=== PATIENT | male | born 1995 | race Caucasian/White ===

== ENCOUNTER → 2019-03-28 | Outpatient (CLI) | payer BC ==
[2019-03-28 09:12] LABS: BASO % 0.5 % (0.0-1.0); EOS # 0.1 10^3/uL (0.0-0.5); EOS % 1.4 % (0.0-3.0); LYMPH # 1.8 10^3/uL (1.5-5.0); LYMPH % 31.8 % (24.0-44.0); MEAN CORPUSCULAR HGB CONC 34.6 g/dl (32.0-36.5); MEAN CORPUSCULAR VOLUME 89.7 fl (80.0-96.0); MONO # 0.4 10^3/uL (0.0-0.8); MONO % 6.2 % (0.0-5.0); NEUTROPHILS # 3.4 10^3/uL (1.5-8.5); NEUTROPHILS % 59.2 % (36.0-66.0); PLATELET COUNT, AUTOMATED 174 10^3/uL (150-450); WHITE BLOOD COUNT 5.7 10^3/uL (4.0-10.0)
[2019-03-28 09:13] LABS: HEMATOCRIT 52.9 % (42.0-52.0); HEMOGLOBIN 18.3 g/dl (13.5-17.5)
[2019-03-28 09:45] LABS: BLOOD UREA NITROGEN 11 MG/DL (7-18); CALCIUM LEVEL 9.9 MG/DL (8.5-10.1); CARBON DIOXIDE LEVEL 31 MEQ/L (21-32); CHLORIDE LEVEL 106 MEQ/L (98-107); GLOMERULAR FILTRATION RATE > 60.0 (>60); GLUCOSE, FASTING 92 MG/DL (70-100); POTASSIUM SERUM 4.6 MEQ/L (3.5-5.1); SODIUM LEVEL 141 MEQ/L (136-145)
== END ==
LOC: M LAB 08:36
PROVIDERS: ATTEND Physician Assistant
DX: R53.83 Other fatigue (principal)

== ENCOUNTER → 2019-04-08 | Outpatient (CLI) | payer BC ==
[~2019-04-08] MED LIST: CARA1TAB6 PO; DICY20TA11 PO; ESOM40CA35; FLUTISP; ONDA4TAB6; zyrtec PO
[2019-04-08 10:40] LABS: BASO % 0.3 % (0.0-1.0); EOS % 0.3 % (0.0-3.0); HEMATOCRIT 49.1 % (42.0-52.0); HEMOGLOBIN 16.8 g/dl (13.5-17.5); LYMPH # 1.1 10^3/uL (1.5-5.0); LYMPH % 11.9 % (24.0-44.0); MEAN CORPUSCULAR HEMOGLOBIN 30.3 pg (27.0-33.0); MEAN CORPUSCULAR HGB CONC 34.2 g/dl (32.0-36.5); MEAN CORPUSCULAR VOLUME 88.6 fl (80.0-96.0); MONO # 0.8 10^3/uL (0.0-0.8); MONO % 8.8 % (0.0-5.0); NEUTROPHILS # 7.2 10^3/uL (1.5-8.5); NEUTROPHILS % 78.4 % (36.0-66.0); PLATELET COUNT, AUTOMATED 167 10^3/uL (150-450); RED BLOOD COUNT 5.54 10^6/uL (4.30-6.10); WHITE BLOOD COUNT 9.2 10^3/uL (4.0-10.0)
[2019-04-08 11:00] LABS: ALBUMIN 4.1 GM/DL (3.2-5.2); ALT/SGPT 31 U/L (12-78); AMYLASE 40 U/L (25-115); BILIRUBIN,TOTAL 4.8 MG/DL (0.2-1.0); BLOOD UREA NITROGEN 12 MG/DL (7-18); CALCIUM LEVEL 9.3 MG/DL (8.5-10.1); CARBON DIOXIDE LEVEL 29 MEQ/L (21-32); CHLORIDE LEVEL 106 MEQ/L (98-107); GLOMERULAR FILTRATION RATE > 60.0 (>60); GLUCOSE, FASTING 85 MG/DL (70-100); POTASSIUM SERUM 4.3 MEQ/L (3.5-5.1); SODIUM LEVEL 138 MEQ/L (136-145); TOTAL PROTEIN 6.7 GM/DL (6.4-8.2)
== END ==
LOC: M LAB 09:30
PROVIDERS: ATTEND Family Medicine
DX: R11.0 Nausea (principal)

== ENCOUNTER 2019-04-10 12:10 | Emergency (ER) | payer BC ==
[~2019-04-10] VITALS: Ht 180.3 cm; Wt 84.5 kg
[2019-04-10] MEDS ORDERED: ESOM40CA35 (12:20)
[2019-04-10] MEDS ORDERED: FLUTISP (12:20)
[2019-04-10] MEDS ORDERED: ONDA4TAB6 (12:20)
[2019-04-10] MEDS ORDERED: zyrtec PO (12:20)
[2019-04-10 12:54] LABS: BASO % 0.6 % (0.0-1.0); EOS # 0.1 10^3/uL (0.0-0.5); EOS % 1.1 % (0.0-3.0); HEMATOCRIT 48.9 % (42.0-52.0); HEMOGLOBIN 16.8 g/dl (13.5-17.5); LYMPH # 1.3 10^3/uL (1.5-5.0); LYMPH % 17.9 % (24.0-44.0); MEAN CORPUSCULAR HEMOGLOBIN 30.7 pg (27.0-33.0); MEAN CORPUSCULAR HGB CONC 34.4 g/dl (32.0-36.5); MEAN CORPUSCULAR VOLUME 89.4 fl (80.0-96.0); MONO # 0.8 10^3/uL (0.0-0.8); MONO % 11.8 % (0.0-5.0); NEUTROPHILS # 4.8 10^3/uL (1.5-8.5); NEUTROPHILS % 68.2 % (36.0-66.0); PLATELET COUNT, AUTOMATED 180 10^3/uL (150-450); RED BLOOD COUNT 5.47 10^6/uL (4.30-6.10); WHITE BLOOD COUNT 7.1 10^3/uL (4.0-10.0)
[2019-04-10] MEDS ORDERED: ONDANSETRON 4MG/2ML VIAL (J2405) IV ONE (13:15)
[2019-04-10] MEDS ORDERED: NS 1,000 ML IV ONE (13:15)
[2019-04-10 13:21] LABS: ALBUMIN 3.9 GM/DL (3.2-5.2); ALT/SGPT 30 U/L (12-78); BILIRUBIN,TOTAL 3.3 MG/DL (0.2-1.0); BLOOD UREA NITROGEN 8 MG/DL (7-18); CALCIUM LEVEL 9.2 MG/DL (8.5-10.1); CARBON DIOXIDE LEVEL 29 MEQ/L (21-32); CHLORIDE LEVEL 105 MEQ/L (98-107); CREATININE FOR GFR 1.11 MG/DL (0.70-1.30); GLOMERULAR FILTRATION RATE > 60.0 (>60); GLUCOSE, FASTING 93 MG/DL (70-100); LIPASE 66 U/L (73-393); POTASSIUM SERUM 5.2 MEQ/L (3.5-5.1); SODIUM LEVEL 139 MEQ/L (136-145); TOTAL PROTEIN 6.9 GM/DL (6.4-8.2)
--- NOTE | 2019-04-10 13:38 | REP ---
Clinical: Abdominal pain with nausea and vomiting. Technique: Axial noncontrast images from the lung bases to the pubic symphysis with coronal and sagittal re-formations. Findings: Lung bases are clear. Liver, spleen, pancreas, gallbladder, bilateral adrenal glands and kidneys are normal. The enteric system is without obstruction or acute inflammatory process. Normal terminal ileum and appendix identified in the right lower quadrant. Sigmoid diverticula noted without acute diverticulitis. Mildly prominent lymph nodes in the right lower quadrant/pericecal region may reflect mesenteric adenitis should be correlated clinically. Pelvis demonstrates normal bladder and age appropriate prostate/seminal vesicles. No ascites. No free air. No retroperitoneal adenopathy. Abdominal aorta without aneurysm. Musculoskeletal structures are intact. Impression: 1. Findings suggest mesenteric adenitis. 2. Nonacute findings as above. Electronically Signed by Mio Orozco MD 04/10/2019 01:31 P
[2019-04-10] MEDS ORDERED: DICY20TA11 PO (14:27)
[2019-04-10] MEDS ORDERED: CARA1TAB6 PO (14:27)
[2019-04-10 14:32] VITALS: BP 136/83
== END 2019-04-10 14:39 | disposition home or self-care (01) ==
LOC: M ED 12:10
DX: I88.0 Nonspecific mesenteric lymphadenitis (principal); R11.2 Nausea with vomiting, unspecified; K21.9 Gastro-esophageal reflux disease without esophagitis; Z79.899 Other long term (current) drug therapy; Z88.6 Allergy status to analgesic agent; Z88.8 Allergy status to other drugs, medicaments and biological substances
CPT/HCPCS: 74176; 80053; 83690; 85025; 96374; 99284; J2405

== ENCOUNTER 2019-05-28 07:24 | Day surgery (SDC) | payer BC ==
[~2019-05-28] VITALS: Ht 177.8 cm; Wt 84.4 kg
[~2019-05-28 07:24] MED LIST changes: -ESOM40CA35; +ESOM40CA35 PO; +FLON1SPR NARES; +NS 1,000 ML IV ONE; -ONDA4TAB6; +ONDA4TAB6 PO; +ZYRTTAB8 PO
[2019-05-28 08:45] VITALS: BP 122/75
--- NOTE | 2019-05-28 09:07 | ROOR ---
Patient Name: Kiran Pickard Procedure Date: 05/28/2019 8:07 AM Date of : 1995 Age: 24 Room: [facility] Gender: Male Note Status: Finalized Procedure: Upper Endoscopy + Biopsies Indications: Nausea with vomiting, Weight loss Providers: Bo Nunez MD Referring MD: Elena Correa MD Requesting Provider: Medicines: Monitored Anesthesia Care Complications: No immediate complications. Procedure: Pre-Anesthesia Assessment: - The heart rate, respiratory rate, oxygen saturations, blood pressure, adequacy of pulmonary ventilation, and response to care were monitored throughout the procedure. The Endoscope was introduced through the mouth, and advanced to the second part of duodenum. The upper GI endoscopy was accomplished without difficulty. The patient tolerated the procedure well. Findings: The Z-line was regular and was found 40 cm from the incisors. Multiple biopsies were obtained with cold forceps for evaluation to rule out Key's Esophagus randomly at the gastroesophageal junction. A small hiatal hernia was present. Localized mildly erythematous mucosa without bleeding was found on the anterior wall of the stomach. Biopsies were taken with a cold forceps for histology. Biopsies were taken with a cold forceps in the gastric antrum for Helicobacter pylori testing. The exam of the duodenum was otherwise normal. Impression: - Z-line regular, 40 cm from the incisors. - Small hiatal hernia. - Erythematous mucosa in the anterior wall of the stomach. Biopsied. - Multiple biopsies were obtained at the gastroesophageal junction. - Biopsies were taken with a cold forceps for Helicobacter pylori testing. - The examination was otherwise normal. Recommendation: - Patient has a contact number available for emergencies. The signs and symptoms of potential delayed complications were discussed with the patient. Return to normal activities tomorrow. Written discharge instructions were provided to the patient. - Resume previous diet. - Follow an antireflux regimen. - Continue present medications. - Await pathology results. - Telephone GI clinic for pathology results in 1 week. - Return to referring physician. - The findings and recommendations were discussed with the patient's family. Bo Nunez MD Bo Nunez MD 05/28/2019 9:06:22 AM Electronically signed by Bo Nunez MD Number of Addenda: 0 Note Initiated On: 05/28/2019 8:07 AM Estimated Blood Loss: Estimated blood loss: none.
== END 2019-05-28 09:13 | disposition home or self-care (01) ==
LOC: M OPP 07:24
PROVIDERS: ATTEND Internal Medicine Gastroenterology
DX: K44.9 Diaphragmatic hernia without obstruction or gangrene (principal); K31.89 Other diseases of stomach and duodenum; K21.9 Gastro-esophageal reflux disease without esophagitis; R11.2 Nausea with vomiting, unspecified; R63.4 Abnormal weight loss; Z79.899 Other long term (current) drug therapy; Z88.8 Allergy status to other drugs, medicaments and biological substances
CPT/HCPCS: 43239; 88305; J3010

== ENCOUNTER → 2020-09-22 | Outpatient (CLI) | payer BC ==
[~2020-09-22] MED LIST changes: -NS 1,000 ML IV ONE
--- NOTE | 2020-09-22 16:36 | REP ---
INDICATION: DEVIATED NASAL SEPTUM. COMPARISON: None. TECHNIQUE: Axial CT images with multiplanar reformations. FINDINGS: Mucosal thickening seen at the floor of the left maxillary sinus. The remainder of the paranasal sinuses are clear. Nasal septum deviated to the right with shallow right nasal spur. Visualized dentition is unremarkable. IMPRESSION: Nasal septum deviated to the right with shallow right nasal spur. <Electronically signed by Sean Roberts > 09/22/20 [id number]
== END ==
LOC: M RAD 16:10
PROVIDERS: ATTEND Specialist
DX: J34.2 Deviated nasal septum (principal); J31.0 Chronic rhinitis

== ENCOUNTER → 2023-09-20 | Outpatient (CLI) | payer OTHER ==
[~2023-09-20] MED LIST changes: -DICY20TA11 PO; +DICY20TA20 PO
== END ==
LOC: M PLAIMG 13:41
PROVIDERS: ATTEND Physician Assistant
DX: H50.89 Other specified strabismus (principal)

== ENCOUNTER → 2023-11-29 | Outpatient (CLI) | payer OTHER ==
[~2023-11-29] MED LIST changes: +ONDA-282 PO; -ONDA4TAB6 PO
== END ==
LOC: M RAD 07:34
PROVIDERS: ATTEND Physician Assistant
DX: R74.01 Elevation of levels of liver transaminase levels (principal)